=== PATIENT | female | born 1990 | race Two or more races ===

== ENCOUNTER 2024-10-27 12:49 | Emergency (ER) | payer MEDICAID, SELFPAY ==
[2024-10-27 12:50] VITALS: BMI 59.1
[2024-10-27 13:09] VITALS: BP 146/97; PULSE 92; RESP 18; TEMP 36.7; O2SAT 97
--- NOTE | 2024-10-27 13:11 | EDNOTE_ITS ---
ED Back Injury Pain RME/HPI General Chief Complaint: Back Pain/Injury Stated Complaint: RIGHT SIDE BACK RADIATING DOWN LEG PAIN X5DAYS Time Seen by Provider: 10/27/24 13:10 Arrival date/time: 10/27/24 12:49 34-year-old morbidly obese female presents to the emergency department complaints of right buttock pain radiating down her right leg patient reports similar episodes in the past patient reports no direct trauma Limitations: no limitations Related Data Previous Rx's ?Medication ?Instructions ?Recorded ibuprofen 800 mg tablet 800 mg PO Q6H PRN pain #30 t abs 10/14/19 ibuprofen 600 mg tablet 600 mg PO QID #30 tabs 08/09 ibuprofen 800 mg tablet 800 mg PO TID PRN pain #30 t abs 08/24/21 ibuprofen 800 mg tablet 800 mg PO TID PRN pain #30 t abs 02/07/23 naproxen 250 mg tablet 250 mg PO BID PRN pain #20 t abs 10/06/23 pregabalin 75 mg capsule (Lyrica) 75 mg PO BID #60 cap s 11/08/23 cyclobenzaprine 10 mg tablet 10 mg PO TID PRN muscle s pasm 10 10/27/24 days #30 tab-caps ibuprofen 800 mg tablet 800 mg PO TID PRN pain #30 t abs 10/27/24 Allergies Allergy/AdvReac Type Severity Reaction Status Date / Time No Known Allergies Allergy Verified 10/27/24 12:51 Review of Systems Review of Systems Systems Reviewed: All systems reviewed, normal except as documented Constitutional Constitutional: Reports system reviewed and no additional complaints, except as documented, Denies fever(s) and Denies headache(s) Eyes Eyes: Reports system reviewed and no additional complaints, except as documented and Denies blurry vision ENT Ears, Nose, Mouth, and Throat: Reports system reviewed and no additional complaints, except as documented, Denies headache(s), Denies nasal congestion, Denies nasal discharge and Denies neck pain Cardiovascular Cardiovascular: Reports system reviewed and no additional complaints, except as documented, Denies chest pain and Denies dyspnea Respiratory Respiratory: Reports system reviewed and no additional complaints, except as documented, Denies chest congestion, Denies cough and Denies dyspnea Gastrointestinal Gastrointestinal: Reports system reviewed and no additional complaints, except as documented and Denies abdominal pain Musculoskeletal Musculoskeletal: Reports system reviewed and no additional complaints, except as documented, Denies neck pain, Denies numbness, Reports radiating pain into limb, Reports stiffness and Reports other Integumentary/Breasts Skin/Breast: Reports system reviewed and no additional complaints, except as documented and Denies rash Neurologic Neurologic: Reports system reviewed and no additional complaints, except as documented, Reports as per HPI, Denies headache(s) and Denies numbness Past Medical History Social History SMOKING STATUS: Never smoker ED Exam General Limitations: Present no limitations General appearance: Present alert and in no apparent distress Head Head exam: Present atraumatic, normocephalic and normal inspection Eye Eye exam: Present normal appearance, PERRL and EOMI ENT ENT exam: Present normal exam, normal oropharynx and mucous membranes moist Neck Neck exam: Present normal inspection, full ROM and trachea midline Chest Chest inspection: Present normal inspection and symmetric chest wall rise Respiratory Respiratory exam: Present normal lung sounds bilaterally Cardiovascular Cardiovascular exam: Present regular rate, normal rhythm and normal heart sounds Abdominal Exam Abdominal exam: Present soft and normal bowel sounds; Absent distention or tenderness Extremities Exam Extremities exam: Present normal inspection, full ROM and tenderness Back Exam Back exam: Present normal inspection, full ROM, tenderness and paraspinal tenderness; Absent CVA tenderness (R) or CVA tenderness (L) Back 1 view image: 2 1. Pain Neurological Exam Neurological exam: Present alert, oriented X3 and CN II-XII intact Psychiatric Psychiatric exam: Present normal affect and normal mood Skin Skin exam: Present warm, dry, intact and normal color Course Quality Measures none Orders Category Date Time Status Dexamethasone Inj [Decadron Inj] Med 10/27/24 13:11 Discontinued 10 mg IM X1 ONE Ketorolac Inj [Toradol Inj] Med 10/27/24 13:11 Discontinued 30 mg IM X1 ONE Vital Signs Vital signs: Vital Signs Temperature 98.1 F 10/27/24 13:09 Pulse Rate 92 10/27/24 13:09 Respiratory Rate 18 10/27/24 13:09 Blood Pressure 146/97 H 10/27/24 13:09 Pulse Oximetry (%) 97 10/27/24 13:09 Oxygen Delivery Method Room Air 10/27/24 13:09 O2 saturation 97% on room air within normal limits Back Pain / Injury MDM Narrative MDM Narrative:: 34-year-old morbidly obese female presents to the emergency department complaints of right buttock pain radiating down her right leg patient reports similar episodes in the past patient reports no direct trauma On exam patient has pain right buttock radiating down the right leg patient reports that I have seen her before given her medication which help her symptoms significantly Patient medicated here discharged home with pain meds and muscle relaxers I counseled the patient on weight loss Patient discharged home in no distress to follow-up with primary care doctor in the next 24 to 48 hours and for any worsening symptoms to return to the ER immediately Patient data External records reviewed:: [facility] previous records Clinical information provided by:: patient Social determinants that could affect healthcare access:: none Patient has the following chronic illnesses:: None How is presenting disease/condition affected by chronic disease/condition?: no chronic disease Evaluation data The following diagnostics were reviewed and interpreted by me:: other (specify) (N/A) Lab and/or radiology exams considered but not ordered:: Consider not ordered Interpretation Summary: N/A Medications / Prescriptions Medications or Prescriptions considered but not ordered:: Given Medication administrations:: Medication Administration History Discontinued Medications Dexamethasone Sodium Phosphate (Dexamethasone Sod Phos Inj 10 Mg/Ml Vial) 10 mg IM X1 ONE Stop: 10/27/24 13:12 Last Admin: 10/27/24 13:21 Dose: 10 mg Documented By: OA Ketorolac Tromethamine (Ketorolac Inj 30 Mg/Ml Vial) 30 mg IM X1 ONE Stop: 10/27/24 13:12 Last Admin: 10/27/24 13:21 Dose: 30 mg Documented By: OA Given Consultations Consultation(s) initiated? (list below): No Diagnosis Differential diagnosis back pain/injury: lumbar radiculopathy and strain of lumbar region Most likely diagnosis given after review of the tests above:: Back pain Admission Indicated Admission indicated?: not indicated Admission Request Was there a request for admission?: No Disposition Plan Disposition Plan: Discharge Discharge Attestation Discharge Attestation: The patient and all family members were given an opportunity to ask questions and understood the discharge instructions. Discharge instructions specifically effects, indications for sooner follow up or return to the emergency department, and the expected course of current diagnosis. Patient condition: Stable Discharge Plan Plan Patient Disposition: HOME (Self Care) Disposition Comment: Stable Prescriptions/Referrals Prescriptions/Med Rec: New cyclobenzaprine 10 mg tablet 10 mg PO TID PRN (Reason: muscle spasm) 10 Days Qty: 30 0RF ibuprofen 800 mg tablet 800 mg PO TID PRN (Reason: pain) Qty: 30 0RF No Action pregabalin [Lyrica] 75 mg capsule 75 mg PO BID Qty: 60 0RF ibuprofen 600 mg tablet 600 mg PO QID Qty: 30 0RF ibuprofen 800 mg tablet 800 mg PO Q6H PRN (Reason: pain) Qty: 30 0RF ibuprofen 800 mg tablet 800 mg PO TID PRN (Reason: pain) Qty: 30 0RF ibuprofen 800 mg tablet 800 mg PO TID PRN (Reason: pain) Qty: 30 0RF naproxen 250 mg tablet 250 mg PO BID PRN (Reason: pain) Qty: 20 0RF Problem List Clinical Impression: Back pain Patient/Caregiver Discharge Instructions Education Materials: Back Safety: Lifting Additional Instructions: Please follow up with your primary care doctor in the next 24-48hrs for any worsening symptoms return here immediately Print Language: Emirati Stand Alone Forms: Dyana Award Info., Work/School Release, Patient Portal Info Letter PA/SPECIAL LOAN OFFICER Supervising Physician SERGEY/BIMAL Supervising Physician: Dr Obregon
[2024-10-27] MEDS: KETOROLAC INJ 30 MG/ML VIAL IM (13:21)
[2024-10-27] MEDS: DEXAMETHASONE SOD PHOS INJ 10 MG/ML VIAL IM (13:21)
== END 2024-10-27 14:36 | disposition home or self-care (01) ==
LOC: SERX 13:36
PROVIDERS: Emergency Provider Emergency Medicine; PCP Nurse Practitioner
DX: M54.9 Dorsalgia, unspecified (principal); E66.01 Morbid (severe) obesity due to excess calories; Z68.43 Body mass index [BMI] 50.0-59.9, adult
CPT/HCPCS: 96372; 99283; J1100; J1885

== ENCOUNTER 2024-12-04 17:32 | Emergency (ER) | payer MEDICAID, SELFPAY ==
[2024-12-04 17:52] VITALS: BP 133/95; PULSE 80; RESP 18; TEMP 37.3; O2SAT 99; BMI 59.1
--- NOTE | 2024-12-04 18:00 | EDNOTE_ITS ---
Lower Extremity Injury RME/HPI General Chief Complaint: Extremity Injury, Lower Stated Complaint: RIGHT LEG PAIN Time Seen by Provider: 12/04/24 17:35 Arrival date/time: 12/04/24 17:32 RME / HPI RME / HPI Narrative: 34-year-old female patient came in for evaluation regarding low back pain. Onset of symptoms since 3 days, as worsening pain to the lumbar area, pain radiates to the right lower leg posterior aspect, severity moderate denies any urinary incontinence denies any bowel incontinence denies any saddle anesthesia. Patient is ambulatory. Denies any fever, dysuria or frequency. Related Data Previous Rx's ?Medication ?Instructions ?Recorded ibuprofen 800 mg tablet 800 mg PO Q6H PRN pain #30 t abs 10/14/19 ibuprofen 600 mg tablet 600 mg PO QID #30 tabs 08/09 ibuprofen 800 mg tablet 800 mg PO TID PRN pain #30 t abs 08/24/21 ibuprofen 800 mg tablet 800 mg PO TID PRN pain #30 t abs 02/07/23 naproxen 250 mg tablet 250 mg PO BID PRN pain #20 t abs 10/06/23 pregabalin 75 mg capsule (Lyrica) 75 mg PO BID #60 cap s 11/08/23 ibuprofen 800 mg tablet 800 mg PO TID PRN pain #30 t abs 10/27/24 cyclobenzaprine 10 mg tablet 10 mg PO TID PRN muscle s pasm #30 12/04/24 tabs ibuprofen 800 mg tablet 800 mg PO Q8H PRN pain #30 t abs 12/04/24 Allergies Allergy/AdvReac Type Severity Reaction Status Date / Time No Known Allergies Allergy Verified 10/27/24 12:51 Review of Systems Review of Systems Narrative Review of Systems: Review of system reviewed and within normal limits except mentioned in HPI ED Exam Narrative Physical exam: VITAL SIGNS: Reviewed. GENERAL APPEARANCE: Alert and interactive, follows commands, no acute distress, HEAD AND FACE: Non-traumatic. ENT: PERRL, pink conjunctivitis, eyelid no trauma, Mucous membrane moist. NECK: Supple, nontender, no nuchal rigidity. CHEST: No tenderness, no crepitus, no paradoxical movement, no retractions. LUNGS: Clear, well ventilated, symmetric, no rales, no wheezing, no ronchi, no stridor, good breath sounds bilaterally. HEART: Regular rate, regular rhythm, no murmur, no gallops. ABDOMEN: Soft, positive bowel sounds, nondistended, no guarding, nontender, no rebound, no masses, RECTAL: Deferred. GENITAL: Deferred. NEUROLOGICAL: Gross motor function intact sensory function intact, Appropriate for age. MUSCULOSKELETAL: low back nontender, full range of motion. EXTREMITIES: Nontender, full range of motion. SKIN: Color pink, dry, no rash, no lacerations, no abrasions, no contusions. LYMPHATICS: Deferred. Course Quality Measures none Orders Category Date Time Status CYCLObenzaPRINE [Flexeril] Med 12/04/24 17:59 Discontinued 10 mg PO X1 ONE Dexamethasone Inj [Decadron Inj] Med 12/04/24 17:59 Discontinued 10 mg PO X1 ONE Ketorolac Inj [Toradol Inj] Med 12/04/24 17:59 Discontinued 30 mg IM X1 ONE Vital Signs Vital signs: Vital Signs Temperature 99.1 F 12/04/24 17:52 Pulse Rate 80 12/04/24 17:52 Respiratory Rate 18 12/04/24 17:52 Blood Pressure 133/95 H 12/04/24 17:52 Pulse Oximetry (%) 99 12/04/24 17:52 Oxygen Delivery Method Room Air 12/04/24 17:52 Extremity Injury, Lower MDM Narrative MDM Narrative:: 34-year-old female patient came in for evaluation regarding low back pain. Onset of symptoms since 3 days, as worsening pain to the lumbar area, pain radiates to the right lower leg posterior aspect, severity moderate denies any urinary incontinence denies any bowel incontinence denies any saddle anesthesia. Patient is ambulatory. Denies any fever, dysuria or frequency. Imaging is started at this time, patient's not showing any cauda equina synd vincenzo. Patient received Toradol IM and Flexeril. Patient was also given Decadron p.o. Patient data External records reviewed:: None Clinical information provided by:: patient Social determinants that could affect healthcare access:: none Patient has the following chronic illnesses:: None How is presenting disease/condition affected by chronic disease/condition?: no chronic disease Evaluation data The following diagnostics were reviewed and interpreted by me:: other (specify) Lab and/or radiology exams considered but not ordered:: None Interpretation Summary: None Medications / Prescriptions Medications or Prescriptions considered but not ordered:: None Medication administrations:: Medication Administration History Discontinued Medications Cyclobenzaprine HCl (Cyclobenzaprine 5 Mg Tablet) 10 mg PO X1 ONE Stop: 12/04/24 18:00 Last Admin: 12/04/24 18:56 Dose: 10 mg Documented By: OA Dexamethasone Sodium Phosphate (Dexamethasone Sod Phos Inj 10 Mg/Ml Vial) 10 mg PO X1 ONE Stop: 12/04/24 18:00 Last Admin: 12/04/24 18:57 Dose: 10 mg Documented By: OA Ketorolac Tromethamine (Ketorolac Inj 60 Mg/2 Ml Vial) 30 mg IM X1 ONE Stop: 12/04/24 18:00 Last Admin: 12/04/24 18:57 Dose: 30 mg Documented By: SORIN Toradol IM, Decadron and Flexeril Consultations Consultation(s) initiated? (list below): No Diagnosis Extremity Injury, Lower Differential Diagnosis: other (Back pain, sciatica,) Most likely diagnosis given after review of the tests above:: Back pain, sciatica Admission Indicated Admission indicated?: not indicated Admission Request Was there a request for admission?: No Disposition Plan Disposition Plan: Discharge Discharge Attestation Discharge Attestation: The patient was given an opportunity to ask questions and understood the discharge instructions. Discharge instructions specifically effects, indications for sooner follow up or return to the emergency department, and the expected course of current diagnosis. Patient condition: Stable Discharge Plan Plan Patient Disposition: HOME (Self Care) Disposition Comment: Stable Prescriptions/Referrals Prescriptions/Med Rec: New ibuprofen 800 mg tablet 800 mg PO Q8H PRN (Reason: pain) Qty: 30 0RF cyclobenzaprine 10 mg tablet 10 mg PO TID PRN (Reason: muscle spasm) Qty: 30 0RF No Action pregabalin [Lyrica] 75 mg capsule 75 mg PO BID Qty: 60 0RF ibuprofen 600 mg tablet 600 mg PO QID Qty: 30 0RF ibuprofen 800 mg tablet 800 mg PO Q6H PRN (Reason: pain) Qty: 30 0RF ibuprofen 800 mg tablet 800 mg PO TID PRN (Reason: pain) Qty: 30 0RF ibuprofen 800 mg tablet 800 mg PO TID PRN (Reason: pain) Qty: 30 0RF ibuprofen 800 mg tablet 800 mg PO TID PRN (Reason: pain) Qty: 30 0RF naproxen 250 mg tablet 250 mg PO BID PRN (Reason: pain) Qty: 20 0RF Referrals: Chrissie Gonsalves FNP [Primary Care Provider] - In 1 week Problem List Clinical Impression: Sciatica Patient/Caregiver Discharge Instructions Education Materials: ED Sciatica Additional Instructions: Thank you for the opportunity for serving you today. You are stable for discharged . You are advised to: Follow-up with your PCP in 1 to 2 days for referral to spine surgeon Return to ED for worsening of symptoms Increase oral fluids Take medication as prescribed Print Language: Belizean Stand Alone Forms: Dyana Award Info., Patient Portal Info Letter PA/TEXTILE TECHNICAL OFFICER Supervising Physician SERGEY/BIMAL Supervising Physician: MD Regina
[2024-12-04] MEDS: CYCLObenzaPRINE 5 MG TABLET 10 MG PO (18:56)
[2024-12-04] MEDS: KETOROLAC INJ 60 MG/2 ML VIAL 30 MG IM (18:57)
[2024-12-04] MEDS: DEXAMETHASONE SOD PHOS INJ 10 MG/ML VIAL PO (18:57)
== END 2024-12-04 19:45 | disposition home or self-care (01) ==
PROVIDERS: Emergency Provider Emergency Medicine; PCP Nurse Practitioner
DX: M54.41 Lumbago with sciatica, right side (principal)
CPT/HCPCS: 96372; 99283; J1100; J1885; A9270

== ENCOUNTER 2025-02-21 23:30 | Emergency (ER) | payer MEDICAID, SELFPAY ==
[2025-02-21 23:34] VITALS: BMI 57.5
--- NOTE | 2025-02-21 23:40 | EKG_ITS ---
[facility] Test Date: 2025-02-21 Pat Name: VALENTIN HEWITT Department: Room: - Gender: Female Data Integration Architect: : 1990 Requested By: ED Temporary Provider Order Number: [id number] Reading MD: ED Temporary Provider Measurements Intervals [place] Rate: 98 P: 28 [place]: 186 QRS: 3 QRSD: 86 T: 30 QT: 343 QTc: 439 Interpretive Statements SINUS RHYTHM No previous ECG available for comparison /store/S0/[id number]/ecg/[id number]
[2025-02-21 23:48] VITALS: BP 153/114; BP 158/105; PULSE 97; RESP 19; TEMP 36.6; O2SAT 98
--- NOTE | 2025-02-22 00:02 | XR_ITS ---
Examination: CT brain head without contrast. 2-D sagittal coronal reconstructions Date and time of exam:February 22, 2025 0013 hours INDICATIONS: Episode of dizziness blurred vision lasting 30 to 45 minutes this evening CTDI: vol (mGy):60.2 DLP: (mGycm):1184 Technique: Multiple CT axial sections of the brain have been obtained, 5 mm slice thickness. Contrast has not been administered. 2-D sagittal, coronal reconstructions have been obtained Low dose protocols were performed. One or more of the following dose reduction techniques were used; automated exposure control, adjustment of the mA and/or KV according to patient size, use of iterative reconstruction technique. Findings: No significant ventricular enlargement. Intra-axial or extra-axial hemorrhage density is not seen. No mass effect or midline shift Basal cisterns are not remarkable. Fourth ventricle is midline. Cranial vault intact. Impression: Negative for acute hemorrhage, mass effect or midline shift Advise clinical correlation and follow-up accordingly
--- NOTE | 2025-02-22 00:03 | PD.EDRME ---
Rapid Medical Screening Exam RME Arrival date/time: 02/21/25 23:30 This is a case of 34-year-old female who came in in the emergency room due to syncopal episode patient states that she was going home when she felt dizziness and lightheaded and had an syncopal episode Chief Complaint: Syncope / Near Syncope Time Seen by Provider: 02/22/25 00:02 Vital signs: Vital Signs Temperature 97.8 F 02/21/25 23:48 Pulse Rate 97 02/21/25 23:48 Respiratory Rate 19 02/21/25 23:48 Blood Pressure 158/105 H 02/21/25 23:48 Pulse Oximetry (%) 98 02/21/25 23:48 Oxygen Delivery Method Room Air 02/21/25 23:48
--- NOTE | 2025-02-22 00:39 | PRELIM_ITS ---
CT scan of the head without intravenous contrast (axial sections with sagittal and coronal reformats). February 22, 2025 0013 hours Clinical History: syncope Findings: No evidence of intracranial hemorrhage, mass effect or midline shift. The ventricles and CSF spaces are unremarkable. The calvarium is unremarkable. The mastoid air cells and the visualized paranasal sinuses are clear. Impression: No evidence of intracranial hemorrhage, mass effect or midline shift. Report Electronically Signed By: Fawad Delgado 02/22/2025 12:38:15 AM [EST]
[2025-02-22 00:56] LABS: Collection Type, Urine Voided
[2025-02-22 01:12] LABS: Bilirubin,Urine Negative (Negative); Blood,Urine Negative (Negative); Clarity,Urine Clear (Clear/Hazy); Color,Urine Colorless (Lt Yel-Yel); Glucose, Urine Negative (Negative); Ketones,Urine Negative (Negative); Leukocyte Esterase,Urine Negative (Negative); Nitrite,Urine Negative (Negative); Protein,Urine Negative (Neg - Trace); RBC,Urine 3 /hpf (0-3); Squamous Epithelial Cell,Urine < 1 /hpf (0-5); Urobilinogen,Urine Negative mg/dL (0.0-1.0); WBC,Urine 1 /hpf (0-5)
[2025-02-22 01:19] LABS: Basophils % (Auto) 0 % (0-2.5); Eosinophils # (Auto) 0.1 Thou/mm3 (0.0-0.5); Eosinophils % (Auto) 1 % (0-10); Hematocrit 38.5 % (36.0-46.0); Hemoglobin 13.6 g/dL (12.0-16.0); Immature Granulocytes % (Auto) 1 % (0-0); Immature Granulocytes Auto 0.08 Thou/mm3 (0.00-0.00); Lymphocytes # (Auto) 2.9 Thou/mm3 (1.0-4.8); Lymphocytes % (Auto) 22 % (10-50); Mean Corpuscular HGB Conc 35.3 g/dl (31.0-37.0); Mean Corpuscular Hemoglobin 31.9 pg (25.0-35.0); Mean Corpuscular Volume 90 fL (80-100); Monocytes # (Auto) 0.8 Thou/mm3 (0.0-0.8); Monocytes % (Auto) 6 % (0-12); Neutrophils # (Auto) 9.3 Thou/mm3 (1.8-7.7); Neutrophils % (Auto) 70 % (37-80); Nucleated Red Blood Cell % 0 /100 WBC (0); Platelet Count 253 Thou/mm3 (140-440); RDW Standard Deviation 43.2 fL (36.4-46.3); Red Blood Count 4.27 Miln/mm3 (4.00-5.20); White Blood Count 13.4 Thou/mm3 (3.6-11.0)
[2025-02-22 01:42] LABS: Alanine Aminotransferase 23 U/L (10-49); Albumin, Serum 4.1 gm/dL (3.5-5.0); Albumin/Globulin Ratio 1.5 (1.2-2.2); Alkaline Phosphatase 113 U/L (46-116); Anion Gap 9 (7-16); Aspartate Amino Transferase 25 U/L (0-34); BUN/Creatinine Ratio 12 Ratio (12-20); Bilirubin,Total 0.3 mg/dL (0.3-1.2); Blood Urea Nitrogen 7 mg/dL (9-23); Calcium 8.6 mg/dL (8.3-10.6); Calcium (Corrected) 8.6 mg/dL (8.5-10.1); Carbon Dioxide 28.2 mMol/L (20.0-31.0); Chloride 103 mMol/L (98-107); Creatinine (Component) 0.6 mg/dL (0.6-1.3); Estimated Creatinine Clearance 190.3 mL/min (>60); Globulin 2.8 gm/dL (2.3-3.5); Glucose 134 mg/dL (74-106); Osmolality,Calculated 279 (275-295); Potassium 4.3 mMol/L (3.4-5.1); Sodium 140 mMol/L (136-145); Total Protein 6.9 gm/dL (5.7-8.2); Troponin I < 0.002 ng/mL (0.0-0.045); eGFR > 60 See Note
--- NOTE | 2025-02-22 02:50 | EDNOTE_ITS ---
ED Syncope RME/HPI General Chief Complaint: Syncope / Near Syncope Stated Complaint: palpitation Time Seen by Provider: 02/22/25 00:02 Arrival date/time: 02/21/25 23:30 RME / HPI RME / HPI narrative: 02/21/25 23:30 This is a case of 34-year-old female who came in in the emergency room due to syncopal episode patient states that she was going home when she felt dizziness and lightheaded and had an syncopal episode --------- Dr. Heath?s Main ED Evaluation: 34yo female with no significant past medical history accompanied by her sister presents to the ED for a chief complaint of near syncope. Patient states she started having a panic attack on her way home, reporting she applied ice and cold rags in an attempt to calm herself down. Patient states she was walking in a convenience store when she felt like she was going to pass out. Patient was concerned, so she came in for evaluation. Patient denies any fever, chills, N/V or any other associated symptoms. NKA. Related Data Previous Rx's ?Medication ?Instructions ?Recorded ibuprofen 800 mg tablet 800 mg PO Q6H PRN pain #30 t abs 10/14/19 ibuprofen 600 mg tablet 600 mg PO QID #30 tabs 08/09 ibuprofen 800 mg tablet 800 mg PO TID PRN pain #30 t abs 08/24/21 ibuprofen 800 mg tablet 800 mg PO TID PRN pain #30 t abs 02/07/23 naproxen 250 mg tablet 250 mg PO BID PRN pain #20 t abs 10/06/23 pregabalin 75 mg capsule (Lyrica) 75 mg PO BID #60 cap s 11/08/23 ibuprofen 800 mg tablet 800 mg PO TID PRN pain #30 t abs 10/27/24 cyclobenzaprine 10 mg tablet 10 mg PO TID PRN muscle s pasm #30 12/04/24 tabs ibuprofen 800 mg tablet 800 mg PO Q8H PRN pain #30 t abs 12/04/24 Allergies Allergy/AdvReac Type Severity Reaction Status Date / Time No Known Allergies Allergy Verified 02/21/25 23:39 Review of Systems Review of Systems Systems Reviewed: All systems reviewed, normal except as documented Past Medical History Social History SMOKING STATUS: Never smoker ED Exam Narrative Physical exam: GENERAL APPEARANCE: alert and oriented x 4, morbidly obese, well-developed, well-nourished, no acute distress VITALS: All vitals were reviewed and the pulse ox is 98% on room air, which is normal according to my interpretation. HEENT: Normocephalic, atraumatic; pupils equal, round, reactive to light; EOMI; mucous membranes pink, moist; oropharynx clear NECK: Supple LUNGS: CTABL; no wheezes, no rales, no rhonchi HEART: Regular rate, regular rhythm; normal S1, S2; no murmurs ABDOMEN: non distended; normal BS; soft, no tenderness, no guarding, no rebound; no masses, no organomegaly, no hernia BACK: no CVA tenderness EXTREMITIES: atraumatic; no edema NEUROLOGIC: awake; alert and oriented x4; cranial nerves II-XII grossly intact; no focal sensory or motor deficits PSYCHIATRIC: appropriate mood and affect SKIN: warm, dry, normal color; no rashes Course Quality Measures none Orders Category Date Time Status EKG (ED ONLY) *Do not use* NOW Care 02/21/25 23:40 Completed EKG (ED ONLY) *Do not use* NOW Care 02/22/25 00:[address] head/brain wo con Stat Exams 02/22/25 00:02 Taken EKG (ED Only) Stat Exams 02/21/25 23:40 Ordered EKG (ED Only) Stat Exams 02/22/25 00:02 Ordered CBC Stat Lab 02/22/25 00:51 Completed CMP [Comprehensive Metabolic Panel] Stat Lab 02/22/25 00:51 Completed Troponin I Stat Lab 02/22/25 00:51 Completed Urinalysis Stat Lab 02/22/25 00:41 Completed LORazepam [Ativan] Med 02/22/25 03:00 Discontinued 0.5 mg PO X1 ONE Vital Signs Vital signs: Vital Signs Temperature 97.8 F 02/21/25 23:48 Pulse Rate 97 02/21/25 23:48 Respiratory Rate 19 02/21/25 23:48 Blood Pressure 158/105 H 02/21/25 23:48 Pulse Oximetry (%) 98 02/21/25 23:48 Oxygen Delivery Method Room Air 02/21/25 23:48 Syncope MDM Narrative MDM Narrative:: Scribe Attestation: 02/22/25 - Catrachita Cornejo am scribing for and in the presence of Dr. Heath. Patient data External records reviewed:: [facility] previous records (Per chart review, patient has no relevant previous ED visits.) Clinical information provided by:: patient Social determinants that could affect healthcare access:: none Patient has the following chronic illnesses:: none How is presenting disease/condition affected by chronic disease/condition?: no chronic disease Evaluation data The following diagnostics were reviewed and interpreted by me:: lab results, radiology exam(s) and EKG tracing(s) Lab and/or radiology exams considered but not ordered:: none Interpretation Summary: WBC 13.4, CMP normal, Troponin normal, UA is unremarkable. EKG 2344, NSR, rate of 98, normal axis, no ectopy, no acute ischemia, according to my interpretation. [employer] Preliminary Report Draft Patient: VALENTIN HEWITT Record#: [id number] Birthdate: 1990 Age/Sex: 34 / F Location: [facility] Attending Dr: Ordering Physician: Date of Service: Procedure(s): Accession Number(s): cc: ~ CT scan of the head without intravenous contrast (axial sections with sagittal and coronal reformats). February 22, 2025 0013 hours Clinical History: syncope Findings: No evidence of intracranial hemorrhage, mass effect or midline shift. The ventricles and CSF spaces are unremarkable. The calvarium is unremarkable. The mastoid air cells and the visualized paranasal sinuses are clear. Impression: No evidence of intracranial hemorrhage, mass effect or midline shift. Report Electronically Signed By: Fawad Delgado 02/22/2025 12:38:15 AM Medications / Prescriptions Medications or Prescriptions considered but not ordered:: none Medication administrations:: Medication Administration History Discontinued Medications Lorazepam (Lorazepam 0.5 Mg Tablet) 0.5 mg PO X1 ONE Stop: 02/22/25 03:01 Last Admin: 02/22/25 03:06 Dose: 0.5 mg Documented By: PIETRO see above Consultations Consultation(s) initiated? (list below): No Diagnosis Syncope Differential Diagnosis: other (thyroid storm, cardiac arrhythmia, anxiety reaction, acute psychosis) Most likely diagnosis given after review of the tests above:: see clinical impression below Admission Indicated Admission indicated?: not indicated Admission Request Was there a request for admission?: No Disposition Plan Disposition Plan: Discharge Discharge Attestation Discharge Attestation: The patient and all family members were given an opportunity to ask questions and understood the discharge instructions. Discharge instructions specifically effects, indications for sooner follow up or return to the emergency department, and the expected course of current diagnosis. Patient condition: Stable Discharge Plan Plan Patient Disposition: HOME (Self Care) Discharge Disposition comment: Stable for discharge home Patient condition on transfer: Stable Prescriptions/Referrals Prescriptions/Med Rec: No Action pregabalin [Lyrica] 75 mg capsule 75 mg PO BID Qty: 60 0RF ibuprofen 600 mg tablet 600 mg PO QID Qty: 30 0RF ibuprofen 800 mg tablet 800 mg PO Q6H PRN (Reason: pain) Qty: 30 0RF ibuprofen 800 mg tablet 800 mg PO TID PRN (Reason: pain) Qty: 30 0RF ibuprofen 800 mg tablet 800 mg PO TID PRN (Reason: pain) Qty: 30 0RF ibuprofen 800 mg tablet 800 mg PO TID PRN (Reason: pain) Qty: 30 0RF naproxen 250 mg tablet 250 mg PO BID PRN (Reason: pain) Qty: 20 0RF ibuprofen 800 mg tablet 800 mg PO Q8H PRN (Reason: pain) Qty: 30 0RF cyclobenzaprine 10 mg tablet 10 mg PO TID PRN (Reason: muscle spasm) Qty: 30 0RF Referrals: [facility] [Provider Group] - In 1 week Problem List Clinical Impression: Anxiety reaction Patient/Caregiver Discharge Instructions Discharge Activity: activity as tolerated Education Materials: ED Anxiety Reaction Additional Instructions: Please return to the emergency department if you have any worsening or any further medical problems and we will help you. Otherwise you should follow-up with your primary care doctor within the next several days Print Language: [place] Citizen Stand Alone Forms: [employer] Award Info., Patient Portal Info Letter
[2025-02-22] MEDS: LORazepam 0.5 MG TABLET PO (03:06)
[2025-02-22 03:10] VITALS: BP 137/83; PULSE 90; RESP 20; TEMP 36.8; O2SAT 95
== END 2025-02-22 03:12 | disposition home or self-care (01) ==
PROVIDERS: Nurse Practitioner Family; Emergency Provider Emergency Medicine
DX: F41.1 Generalized anxiety disorder (principal); R55 Syncope and collapse; R42 Dizziness and giddiness; H53.8 Other visual disturbances
CPT/HCPCS: 36415; 70450; 80053; 81001; 84484; 85025; 93005; 99284; A9270